=== PATIENT | male | born 1995 | race Caucasian/White ===

== ENCOUNTER 2016-09-14 16:50 | Emergency (ER) | payer OTHER ==
[~2016-09-14 16:50] MED LIST: MSC15; SOMA350 MG PO; XANAX0.25 MG PO
[2016-09-14 16:52] VITALS: BP 129/90
== END 2016-09-14 18:00 | disposition left against medical advice (07) ==
LOC: ED 16:50
DX: Z53.21 Procedure and treatment not carried out due to patient leaving prior to being seen by health care provider (principal); F11.10 Opioid abuse, uncomplicated; F90.9 Attention-deficit hyperactivity disorder, unspecified type; K58.9 Irritable bowel syndrome, unspecified; M19.90 Unspecified osteoarthritis, unspecified site; M06.9 Rheumatoid arthritis, unspecified; G89.29 Other chronic pain; Z88.0 Allergy status to penicillin

== ENCOUNTER 2018-09-11 06:48 | Emergency (ER) | payer OTHER ==
[~2018-09-11] VITALS: Ht 175.3 cm; Wt 61.7 kg
[2018-09-11 06:56] VITALS: BP 137/96; Ht 175.3 cm; Wt 61.7 kg
== END 2018-09-11 07:19 | disposition home or self-care (01) ==
LOC: ED 06:48
DX: R19.7 Diarrhea, unspecified (principal); Z76.0 Encounter for issue of repeat prescription; F17.210 Nicotine dependence, cigarettes, uncomplicated; Z71.6 Tobacco abuse counseling; Z88.0 Allergy status to penicillin; Z88.1 Allergy status to other antibiotic agents; M06.9 Rheumatoid arthritis, unspecified
CPT/HCPCS: 99406

== ENCOUNTER 2019-03-01 22:36 | Emergency (ER) | payer OTHER ==
[~2019-03-01] VITALS: Ht 167.6 cm; Wt 74.8 kg
[2019-03-01 23:04] VITALS: Ht 167.6 cm; Wt 74.8 kg
[2019-03-02 01:12] VITALS: BP 116/86
== END 2019-03-02 01:12 | disposition home or self-care (01) ==
LOC: ED 22:36
DX: R21 Rash and other nonspecific skin eruption (principal); M06.9 Rheumatoid arthritis, unspecified; Z76.0 Encounter for issue of repeat prescription; Z88.0 Allergy status to penicillin
CPT/HCPCS: J0696

== ENCOUNTER 2019-03-23 06:36 | Emergency (ER) | payer OTHER ==
[~2019-03-23] VITALS: Ht 175.3 cm; Wt 71.2 kg
[2019-03-23 06:44] VITALS: BP 145/99; Ht 175.3 cm; Wt 71.2 kg
== END 2019-03-23 07:20 | disposition left against medical advice (07) ==
LOC: ED 06:36
DX: Z53.21 Procedure and treatment not carried out due to patient leaving prior to being seen by health care provider (principal)

== ENCOUNTER 2019-03-27 03:02 | Inpatient (IN) | payer OTHER ==
[~2019-03-27] VITALS: Ht 172.7 cm; Wt 68.0 kg
[2019-03-27 03:06] VITALS: Ht 172.7 cm; Wt 68.0 kg
[2019-03-27 03:54] LABS: BASOPHIL % 0.1 % (0-2); PLATELET COUNT 289 x10^3mcL (130-400); RED CELL DISTRIBUTION WIDTH 13.1 % (11.5-14.5)
[2019-03-27 04:05] LABS: ALBUMIN 4.9 g/dL (3.4-5.0); ALKALINE PHOSPHATASE 73 U/L (46-116); ALT/SGPT 42 U/L (16-63); AST/SGOT 58 U/L (15-37); BILIRUBIN TOTAL 0.7 mg/dL (0.20-1.00); CALCIUM 9.7 mg/dL (8.5-10.1); CARBON DIOXIDE 23.3 mmol/L (21-32); CHLORIDE SERUM 101 mmol/L (98-107); CREATININE SERUM 1.3 mg/dL (0.7-1.3); GFR1 > 60 mL/min; POTASSIUM SERUM 4.6 mmol/L (3.5-5.1); SODIUM SERUM 141 mmol/L (136-145); TOTAL PROTEIN, SERUM 8.6 g/dL (6.4-8.2)
[2019-03-27 04:07] LABS: GLUCOSE SERUM 55 mg/dL (74-106)
[2019-03-27 05:31] LABS: AMPHETAMINE QUAL UR POSITIVE (See below)
[2019-03-27 06:05] LABS: UA SPECIFIC GRAVITY >=1.030 (1.005-1.035); microscopic required? YES; urine erythrocyte NEGATIVE (NEGATIVE)
[2019-03-27 16:01] VITALS: BP 96/45
== END 2019-03-27 15:55 | disposition left against medical advice (07) | DRG 351 ==
LOC: ED 03:02 → DU 08:06
PROVIDERS: Emergency Medicine; ADMIT Internal Medicine
DX: M62.82 Rhabdomyolysis (principal); F15.121 Other stimulant abuse with intoxication delirium; E16.2 Hypoglycemia, unspecified; Z88.0 Allergy status to penicillin; Z88.8 Allergy status to other drugs, medicaments and biological substances; F41.9 Anxiety disorder, unspecified; F32.9 Major depressive disorder, single episode, unspecified; M06.9 Rheumatoid arthritis, unspecified; F15.10 Other stimulant abuse, uncomplicated; Z53.29 Procedure and treatment not carried out because of patient's decision for other reasons
CPT/HCPCS: 82962; G0378; G0480; J1885; J2060; J3486; J7030; J7042; Q0092

== ENCOUNTER 2019-03-27 16:42 | Inpatient (IN) | payer OTHER ==
[~2019-03-27] VITALS: Ht 175.3 cm; Wt 71.7 kg
[2019-03-27 16:44] VITALS: Ht 175.3 cm; Wt 71.7 kg
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
--- NOTE | 2019-03-27 17:06 | NUR ---
EMT AT BEDSIDE PT THROWING BODY BACK AND FORTH TO TRY AND GET LOOSE FROM RESTRAINTS. MD MADE AWARE. SAFEETY MEASURES IN PLACE. WILL CONTINUE TO MONITOR.
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
--- NOTE | 2019-03-27 17:33 | NUR ---
MEDICATED PER EMAR.
--- NOTE | 2019-03-27 18:58 | NUR ---
MOTHER IN FRONT LOBBY WATING FOR PT TO BE TAKEN TO ICU.
--- NOTE | 2019-03-27 19:11 | NUR ---
RECEIVED PT REPORT FROM TESSY NDIAYE. I WILL NOW ASSUME PRIMARY CARE OF PT
--- NOTE | 2019-03-27 19:13 | NUR ---
REPORT GIVEN TO RAULITO NDIAYE TO ASSUME CARE OF PT.
[2019-03-27 20:34] LABS: BASOPHIL % 0.5 % (0-2); PLATELET COUNT 213 x10^3mcL (130-400); RED CELL DISTRIBUTION WIDTH 13.2 % (11.5-14.5)
[2019-03-27 20:48] LABS: CALCIUM 8.9 mg/dL (8.5-10.1); CHLORIDE SERUM 105 mmol/L (98-107); CREATININE SERUM 0.9 mg/dL (0.7-1.3); GFR1 > 60 mL/min; GLUCOSE SERUM 89 mg/dL (74-106); POTASSIUM SERUM 3.6 mmol/L (3.5-5.1); SODIUM SERUM 137 mmol/L (136-145)
[2019-03-27 21:00] LABS: ALBUMIN 3.6 g/dL (3.4-5.0); ALKALINE PHOSPHATASE 57 U/L (46-116); ALT/SGPT 38 U/L (16-63); AST/SGOT 63 U/L (15-37); BILIRUBIN DIRECT 0.16 mg/dL (0.0-0.2); BILIRUBIN TOTAL 0.48 mg/dL (0.20-1.00); HDL CHOLESTEROL 43 mg/dL (40-60); MAGNESIUM 2.2 mg/dL (1.8-2.4); PHOSPHOROUS 2.7 mg/dL (2.5-4.9); TOTAL PROTEIN, SERUM 6.8 g/dL (6.4-8.2); TRIGLYCERIDES 45 mg/dL (<150)
[2019-03-27 21:01] LABS: CHOLESTEROL 111 mg/dL (<200); CHOLESTEROL/HDL RATIO 2.6
--- NOTE | 2019-03-27 22:30 | NUR ---
PT WAS COMPLAINING OF HIS WRIST HURTING FROM THE RESTRAINTS. PT'S SKIN AND CMS INTACT. WRIST RESTRAINTS ADJUSTED AND PT STATES THAT IT FEELS BETTER. PT VERBALY CONTRACTED TO BE CALM AND COOPERATIVE IF LEG RESTRAINTS ARE REMOVED. LEG RESTRAINTS REMOVED. [facility]. PT IN FRONT OF NURSES STATION WITH CURTAIN OPEN.
--- NOTE | 2019-03-28 00:14 | NUR ---
PT IS RESTING IN ED GURNEY. PT IS EASILY AROUSABLE. SERGIO NATHALY RISE AND FALL NOTED. PT RESPS ARE E/U. NO ACD NOTED. PT IS VISIBLE FROM NURSES STATION. PT GURNEY IN LOWEST POSITION FOR PT SAFETY/
--- NOTE | 2019-03-28 02:45 | NUR ---
PT SEEMS TO BE SLEEPING IN ED GURNEY. PT IS EASILY AROUSABLE. PT IS ABLE TO SPEAK IN FULL SENTENCES. PT DENIES ANY PAIN. PT IS IN VIEW OF NURSES STATION FOR PT SAFETY. WILL CONTINUE TO MONITOR
--- NOTE | 2019-03-28 04:55 | NUR ---
PT RESTING IN POSITION OF COMFORT IN ED GURNEY. PT SAFETY PRECAUTIONS ARE IN PLACE. GURNEY IN LOWEST POSITION. PT HAS CALL LIGHT WITHIN REACH. PT IS IN VIEW OF NURSES STATION. PT VERBALIZED HE WILL NOT HARD HIMSELF OR OTHERS.
--- NOTE | 2019-03-28 06:34 | NUR ---
PT SEEMS TO BE WAKING UP. PT SEEMS TO BE RESTLESS HE IS TOSSING AND TURNING IN GURNEY AND MOANING. PT RESPS ARE E/U. SERGIO CHEST RISE AND FALL NOTED. PT DENIES ANY PAIN. ALL EXTREMITIES +PMSC. NO ACD NOTE
--- NOTE | 2019-03-28 07:12 | NUR ---
REPORT RECEIVED FROM JOSEPH NDIAYE TO ASSUME CARE OF PT.
--- NOTE | 2019-03-28 07:18 | NUR ---
GAVE PT REPORT TO TESSY NDIAYE TO ASSUME PRIMARY CARE OF PT
--- NOTE | 2019-03-28 07:41 | NUR ---
REPORT GIVEN TO OBED NDIAYE TO ASSUME CARE OF PT.
--- NOTE | 2019-03-28 08:16 | NUR ---
TREMAINE WAS BROUHGT UP FROM ED FOR ADDMISSION OF 5`50 HOLD AND METH INTOXICATION. ACCOMPANIED BY MRI ASSISTANT AND X3 SECURITY. TREMAINE WAS VERBALY AND PHSYICALLY ABUSIVE IN ED, SPITTING HITTING, KICKING, AND BITING. PATIENT DROWZY BUT ROUSABLE, WRIST RESTRAINTS ON PATIENT ON ED GUERENY. ASSISTED PATIENT O AMBULATE TO BED, WHERE HE REQUESTED TO SLEEP. DENIES PAIN. A/O X4, ON ROOM AIR. VSS. SITTER AT BEDSIDE. CALL IGHT WITHIN REACH
--- NOTE | 2019-03-28 08:48 | NUR ---
RECEIVED ORDER FROM DR BARR TO TRANSFER PATIENT TO [facility]. PATIENT IS STABLE
--- NOTE | 2019-03-28 11:02 | NUR ---
PATIENT MOTHER CALLED ASKING TO SPEAK WTIH PATIENT. PATIENT WAS ROUSED FROM SLEEP AND GIVEN PHONE TO SPEAK WITH MOTHER. NO COMPLAINTS AT THIS TIME, DENIES SI/HI
--- NOTE | 2019-03-28 13:40 | NUR ---
SPOKE WITH MARI FROM THE [facility] CALL C[facility] , CALL CENTER ASKING IF PATIENT IS MEDICALLY CLEARED FOR THEM TO START LOOKING FOR PLACEMENT AT A PSYCH CENTER. PAGED DR BARR TO INQUIRE, PATIENT WAS MEDIACLLY CLEARED YESTERDAY BEFORE HE ELOPED.
--- NOTE | 2019-03-28 16:14 | NUR ---
PATIENT RESTING IN BED. DISTANT AND BROODING. DENIES HI/SI. ORRIGINAL COPY OF 7480 HOLD OBTAINED. SITTER IN ROOM
[2019-03-28 16:59] VITALS: BP 113/52
[2019-03-28 18:33] VITALS: BP 104/56
--- NOTE | 2019-03-28 19:33 | NUR ---
PATIENT SLEEPING AT THIS TIME. EYES CLOSED, BREATHING REGULAR AND STEADY, ENDORSE CARE TO JEISON NDIAYE.
[2019-03-28 19:35] VITALS: BP 122/72
--- NOTE | 2019-03-28 19:35 | NUR ---
RECEIVED PT ASLEEP BUT EASILY AROUSABLE.CALM AND NO AGITATION TOWARDS STAFF NOTED.NURSE AT BEDSIDE TO ASSIST WITH ADLS.ON 5150 HOLD.WILL CONTINUE TO MONITOR.
--- NOTE | 2019-03-28 20:29 | NUR ---
Change of shift report given, will continue to monitor and help with placement
--- NOTE | 2019-03-29 04:50 | NUR ---
PT SLEPT WELL ALL NIGHT.NO EPISODES OF AGITATION TOWARD STAFF.DENIES SUICIDAL/HOMICIDAL IDEATION.ON 5150 HOLD.SITTER AT BEDSIDE.CONTINUE TO REFUSED IV FLUIDS.WILL CONTINUE TO MONITOR.
--- NOTE | 2019-03-29 06:28 | NUR ---
PT WOKE UP AND APPEARS VERY PLEASANT AND COOPERATIVE.REQUESTING FOR SOMETHING TO RELAX HIM AND GET SOME MORE SLEEP.ATIVAN 2 MG IVP ADMINISTERED.ALSO ALLOWED NURSE TO HOOK IV FLUIDS AND INFORM OF IMPORTANCE.WILL CONTINUE TO MONITOR.
[2019-03-29 06:29] VITALS: BP 90/62
--- NOTE | 2019-03-29 06:48 | NUR ---
[facility] to continue looking for placement for this pt. No openings overnight per noc shift. Will followup with contracted facilities. Will contact with any placement updates.
--- NOTE | 2019-03-29 07:15 | NUR ---
SEEN AOX4,CALM COOPERATIVE, NOT IN DISTRESS, MED SURG, PALPABLE PULSES, NO EDEMA, CTA ON BLF, + BS, VOID WITH NO DYSURIA, AMBULATORY, SKIN DRY AND INTACT, IV INFUSING WELL WITH NS AT 100CC/HR AT LH. CALL LIGHT WITHIN REACH. BED AT LOWEST POSITION.
--- NOTE | 2019-03-29 09:15 | NUR ---
SEEN AOX4, NOT IN DISTRESS, WITH COMPLAINTS OF GENERALIZED BODY PAIN, PO MEDICATIONS GIVEN FOR PAIN. PROTONIX IVP GIVEN. CALL LIGHT WITHIN REACH. BED AT LOWEST POSITION.
--- NOTE | 2019-03-29 10:25 | NUR ---
SEEN LYING DOWN, AOX4, NOT IN DISTRESS. PATIENT NOTED HE WAS ANXIOUS AND ASKED FOR LAB RESULTS. ATIVAN GIVEN. CALL LIGHT WITHIN REACH. BED AT LOWEST POSITION.
--- NOTE | 2019-03-29 12:02 | NUR ---
Contacted pt RN requesting packet and 5150 hold be refaxed to [facility] at [phone] so we can resume looking for placement. Received 5150 only. Will recontact regarding pt packet.
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
--- NOTE | 2019-03-29 16:36 | NUR ---
[facility] received pt packet. Contacted the following facilities regarding placement: [facility], [facility], [place], [facility]. No openings available at this time. Packet faxed for waitlist. Will follow up. Will contact with any updates.
--- NOTE | 2019-03-29 16:41 | NUR ---
PATIENT FELT ANXIOUS, ASKED WHEN HE WILL BE DISCHARGED. ATIVAN GIVEN.
[2019-03-29 16:47] VITALS: BP 92/41
--- NOTE | 2019-03-29 17:41 | NUR ---
PATIENT COMPLAINED OF PAIN AT [facility]. 11/23, NORCO GIVEN. CALL LIGHT WITHIN REAFCH. BED AT LOWEST POSITION
--- NOTE | 2019-03-29 18:20 | NUR ---
Received reportfrom outgoing shift. Will continue to seek placement and monitor documentation
--- NOTE | 2019-03-29 19:20 | NUR ---
PT LAYING DOWN IN BED WITH STAFF AT [facility]. PT AAOX4, FOLLOW COMMANDS AND MAKE NEEDS KNOWN. MED-WADE, DENIES CP/PRESSURE AT THIS TIME. PALPABLE PULSES TO ALL EXTREMETIES. NO EDEMA NOTED. LUNG SOUNDS CTA. BREATHING EVEN AND UNLABORED ON RA. NO ACUTE DISTRESS NOTED. ABD SOFT AND NONDISTENDED, ACTIVE BS X4 QUAD. DENIES N/V/D. VOIDS FREELY,BRP. AMBULATORY. IV TO LH PATENT AND INTACT. SITE FREE FROM REDNESS AND INTACT. BED AT LOWEST SETTING. SIDE RAILS X2 UP. CALL LIGHT WITHNG REACH. WILL CONT TO MONITOR.
--- NOTE | 2019-03-29 21:06 | NUR ---
Called the following facilities: [facility] SHYANNE Lexi no beds for the rest of the night [facility] s/e Bijal no beds only madhuri. Ages 60 and over [facility] s/w Flavia no beds for the rest of the night [facility] s/e Keiry no beds for the rest of the night. States to call back in the am [facility]. Calld three times no answer only voicemail and not able to leave a message
--- NOTE | 2019-03-30 00:20 | NUR ---
PT STATES ACCIDENTALLY REMOVED IV, NEW IV INSERTED TO LFA. PT TOLERATED WELL. NO ACUTE DISTRESS NOTED. BED AT LOWEST SETTING. SIDE RAILS X2 UP. CALL LIGHT WITHING REACH. WILL CONT TO MONITOR.
--- NOTE | 2019-03-30 02:29 | NUR ---
Still no beds at any of the contracted facilties. All beds at the contracted facilities are full. [facility] still no answer. Not able to leave voicemail
[2019-03-30 06:12] VITALS: BP 95/52
--- NOTE | 2019-03-30 06:13 | NUR ---
PT SLEPT AT LONG INTERVALS THROUGHOUT THE NIGHT, BREATHING EVEN AND UNLABORED ON RA. NO SIGNIFICANT CHANGES DURING SHIFT. IV TO LFA INFUSING NS AT 125ML/HR, SITE WNL. ALL NEEDS ASSESSED AND ATTENDED. NO ACUTE DISTRESS NOTED. STAFF CONT TO BE AT BEDSIDE. BED AT LOWEST SETTING. SIDE RAILS X2 UP. CALL LIGHT WITHING REACH.
[2019-03-30 06:36] LABS: BASOPHIL % 0.5 % (0-2); PLATELET COUNT 181 x10^3mcL (130-400); RED CELL DISTRIBUTION WIDTH 13.4 % (11.5-14.5)
[2019-03-30 06:37] LABS: CALCIUM 8.5 mg/dL (8.5-10.1); CARBON DIOXIDE 28.6 mmol/L (21-32); CHLORIDE SERUM 109 mmol/L (98-107); CREATININE SERUM 0.7 mg/dL (0.7-1.3); GFR1 > 60 mL/min; GLUCOSE SERUM 98 mg/dL (74-106); PHOSPHOROUS 3.9 mg/dL (2.5-4.9); POTASSIUM SERUM 3.8 mmol/L (3.5-5.1); SODIUM SERUM 145 mmol/L (136-145)
[2019-03-30 07:04] VITALS: BP 107/58
--- NOTE | 2019-03-30 08:02 | NUR ---
SEEN PATIENT AOX4, NOT IN DISTRESS, CALM. CTA ON BLF, REGULAR RATE AND RHYTHM, S1 AND S2 HEARD, +BS, LAST BM 03/29/19, VOID WITH NO DYSURIA , NO WEAKNESS, FULL ROM, SKIN DRY AND INTACT, IV INFUSING WELL WITH NS AT 125 CC/HR TO LFA. CALL LIGHT WITHIN REACH. BED AT LOWEST POSITION.
--- NOTE | 2019-03-30 09:22 | NUR ---
PATIENT REMOVED HIS IV ACCESS. OFFERED TO REINSERT IV. PATIENT REFUSED. MEDICATION NOT GIVEN. PATIENT CONSTANTLY ASKED FOR DISCHARGE . PER PATIENT WHEN IS THE DOCTOR COMING. I WANT TO TALK TO HIM. I HAVE BEEN ON HOLD FOR 3 DAYS ALREADY. THEY TOLD ME THAT I WILL JUST BE ON HOLD FOR A DAY. THEY DIDNT KEEP THEIR WORD. PATIENT WAS CONTINUOUSLY EXPLAINED THAT 5150 HOLD IS STILL PRESENT AND THAT DISCHARGE DEPENDS ON DOCTOR'S EVALUATION. PATIENT THEN DECIDED TO WALK OUT OF THE ROOM AND OUT TO THE EXIT DOOR THEN RAN ACROSS THE HOSPITAL TO ESCAPE. PD AND SECURITY DEPT CALLED AND NOTIFIED.
--- NOTE | 2019-03-30 09:22 | NUR ---
PATIENT TOOK WITH HIM HIS SHOES AND PANTS, PATIENT WEARING BLACK SHIRT AND BLACK PANTS, BLACK SHOES.
--- NOTE | 2019-03-30 11:25 | NUR ---
Monitoring notes aware of situation
== END 2019-03-30 09:22 | disposition left against medical advice (07) | DRG 812 ==
LOC: ED 16:42 → DU 17:51 → IC 17:51 → DU 03-28 07:54 → MU 03-28 21:22
PROVIDERS: ADMIT Internal Medicine
DX: T43.621A Poisoning by amphetamines, accidental (unintentional), initial encounter (principal); G92 Toxic encephalopathy; M62.82 Rhabdomyolysis; F15.121 Other stimulant abuse with intoxication delirium; E16.2 Hypoglycemia, unspecified; M06.9 Rheumatoid arthritis, unspecified; F41.9 Anxiety disorder, unspecified; F32.9 Major depressive disorder, single episode, unspecified; Z68.22 Body mass index [BMI] 22.0-22.9, adult; Z88.0 Allergy status to penicillin; Y92.89 Other specified places as the place of occurrence of the external cause; Z79.899 Other long term (current) drug therapy
CPT/HCPCS: C9113; G0378; J1630; J2060; J7030

== ENCOUNTER 2019-08-02 11:24 | Emergency (ER) | payer OTHER ==
[~2019-08-02] VITALS: Ht 175.3 cm; Wt 68.9 kg
[2019-08-02 11:41] VITALS: Ht 175.3 cm; Wt 68.9 kg
[2019-08-02 12:25] VITALS: BP 116/66
== END 2019-08-02 12:25 | disposition home or self-care (01) ==
LOC: ED 11:24
DX: L03.115 Cellulitis of right lower limb (principal); L02.32 Furuncle of buttock; R19.7 Diarrhea, unspecified